=== PATIENT | female | born 1965 | race African-American/Black ===

== ENCOUNTER 2021-08-24 16:26 | Emergency (ER) | payer BC ==
[2021-08-24 16:44] VITALS: BP 156/87; PULSE 67; TEMP 99; BMI 26.6
[2021-08-24] MEDS ORDERED: ACETAMINOPHEN 500 MG TABLET (FP) PO ONE (16:44)
[2021-08-24] MEDS ORDERED: ACETAMINOPHEN 500 MG TABLET (FP) ONE (17:25)
== END 2021-08-24 19:10 | disposition home or self-care (01) ==
LOC: FER 16:26
DX: M79.632 Pain in left forearm (principal); X50.0XXA Overexertion from strenuous movement or load, initial encounter
CPT/HCPCS: 73090-TC-LT-FY; 73110-TC-LT-FY; 99284-25

== ENCOUNTER 2021-09-14 16:05 | Emergency (ER) | payer BC ==
[2021-09-14] MEDS ORDERED: LIDOCAINE 5% TOPICAL PATCH TP ONE (16:41)
[2021-09-14 16:56] VITALS: BP 161/99; PULSE 88; TEMP 99.4; BMI 37.4
[2021-09-14] MEDS ORDERED: LIDOCAINE 5% TOPICAL PATCH ONE (16:58)
[2021-09-14] MEDS ORDERED: LIDOCAINE PATCH REMOVAL MC SCH (22:00)
== END 2021-09-14 19:14 | disposition home or self-care (01) ==
LOC: FER 16:05
DX: M54.42 Lumbago with sciatica, left side (principal)
CPT/HCPCS: 72131-TC; 99284-25